=== PATIENT | female | born 1970 | race Caucasian/White ===

== ENCOUNTER → 2020-06-18 18:01 | Outpatient (CLI) | payer MEDICAID ==
[~2020-06-18 18:01] MED LIST: BENADRYL25 MG PO; HYDROCODON-ACE1 EAC7 PO
[2020-06-18 18:09] LABS: BASOPHILS 0.3 % (0-2); EOSINOPHILS 0.5 % (0-7); HEMATOCRIT 44.5 % (36.0-48.0); HEMOGLOBIN 15.3 g/dL (12-16); IMMATURE GRANULOCYTES 0.2 % (0-5); MCH 31.7 pg (26.0-34.0); MCHC 34.4 g/dL (31.0-37.0); MCV 92.3 fL (80.0-100.0); MEAN PLATELET VOLUME 11.3 fL (7.4-10.4); MONOCYTES 5.1 % (2-11); NEUTROPHIL ABS# 4.44 10x3/uL (1.56-6.13); NEUTROPHILS 67.9 % (40-80); PLATELET COUNT 214 10x3/uL (130-400); RBC 4.82 10x6/uL (4.00-5.40); RDW 12.6 % (11.5-14.5); WBC 6.5 10x3/uL (4.8-10.8)
[2020-06-18 18:46] LABS: CALCIUM 8.7 mg/dL (8.5-10.1)
== END | disposition home or self-care (01) ==
LOC: D.LABREF 18:01
PROVIDERS: ATTEND Nurse Practitioner Family
DX: S52.502A Unspecified fracture of the lower end of left radius, initial encounter for closed fracture (principal)